=== PATIENT | female | born 1945 | race Caucasian/White ===

== ENCOUNTER 2022-11-29 01:52 | Inpatient (IN) | payer MEDICARE, OTHER ==
[~2022-11-29] VITALS: Ht 165.1 cm; Wt 104.2 kg
[~2022-11-29 01:52] MED LIST: ASCO-134 PO; EMPA10TA PO; FERR-39 PO; FLEC50TA10 PO; FURO20TA4 PO; LEVO100T9 PO; METO25TA6 PO; METO5TAB7 PO; POTA-208 PO; RIVA20TA PO; SIMV-45 PO; SPIR25TA5 PO
[2022-11-29] MEDS ORDERED: furosemide 40mg/4ml inj IV ONE (02:15)
[2022-11-29 02:43] LABS: BASOPHILS % (AUTO) 0.4 % (0-1); EOSINOPHILS # (AUTO) 0.1 X10'3 (0-0.9); EOSINOPHILS % (AUTO) 1.1 % (0-6); HEMATOCRIT 41.9 % (35.0-45.0); HEMOGLOBIN 13.6 g/dl (12.0-16.0); LYMPHOCYTES # (AUTO) 0.5 X10'3 (1.1-4.8); LYMPHOCYTES % (AUTO) 7.4 % (21-51); MEAN CORPUSCULAR HEMOGLOBIN 32.6 PG (27.0-31.0); MEAN CORPUSCULAR HGB CONC 32.6 g/dL (33.0-36.5); MEAN CORPUSCULAR VOLUME 100.1 FL (78-98); MEAN PLATELET VOLUME 7.9 FL (7.4-10.4); MONOCYTES # (AUTO) 0.8 X10'3 (0-0.9); MONOCYTES % (AUTO) 11.8 % (2-12); NEUTROPHILS # (AUTO) 5.4 X10'3 (1.8-7.7); NEUTROPHILS % (AUTO) 79.3 % (42-75); PLATELET COUNT 193 X10'3 (140-440); RED BLOOD COUNT 4.18 X10'6 (4.20-5.60); RED CELL DISTRIBUTION WIDTH 18.6 % (11.5-14.5); WHITE BLOOD COUNT 6.8 X10'3 (4.5-11.0)
[2022-11-29 03:00] LABS: ALANINE AMINOTRANSFERASE 27 U/L (12-78); ALBUMIN 2.9 G/DL (3.4-5.0); ALBUMIN/GLOBULIN RATIO 0.7 (1.1-1.5); ALKALINE PHOSPHATASE 172 IU/L (46-116); ANION GAP 5 (8-16); BILIRUBIN,TOTAL 1.8 MG/DL (0.1-1.0); BLOOD UREA NITROGEN 37 MG/DL (7-18); BUN/CREATININE RATIO 40.7 (6.6-38.0); CHLORIDE 95 MMOL/L (99-107); CREATININE 0.91 MG/DL (0.40-0.90); GLUCOSE 83 MG/DL (70-104); SODIUM 134 MMOL/L (135-145); TOTAL CARBON DIOXIDE 34.1 MMOL/L (24-32); TOTAL PROTEIN 7.1 G/DL (6.4-8.2); eGFR 60 ML/MIN
[2022-11-29 03:02] LABS: ASPARTATE AMINO TRANSFERASE 57 U/L (10-37); POTASSIUM 4.2 MMOL/L (3.5-5.1)
[2022-11-29] MEDS ORDERED: RIVA10TA PO ×2 (03:35→04:52)
[2022-11-29] MEDS ORDERED: CEPH250T PO ×2 (03:35→04:52)
[2022-11-29] MEDS ORDERED: LACTC PO (03:35)
[2022-11-29] MEDS ORDERED: magnesium hydroxide 30ml (MOM) UD suspension PO PRN (03:55)
[2022-11-29] MEDS ORDERED: ondansetron/PF 4mg/2ml inj IV PRN (03:55)
[2022-11-29] MEDS ORDERED: mag hydrox/Alum hydrox/simeth 30ml oral suspension PO PRN (03:55)
[2022-11-29] MEDS ORDERED: MESSAGE TO PHARMACY PO ONE (03:55)
[2022-11-29] MEDS ORDERED: dextrose 50%-water 50ml dispensing syringe IV PRN ×2 (03:55)
[2022-11-29] MEDS ORDERED: glucagon, human recombinant 1mg kit SUBCUT PRN (03:55)
[2022-11-29] MEDS ORDERED: insulin Lispro (HumaLOG) vial - multi-dose SQ SCH (03:55)
[2022-11-29] MEDS ORDERED: HYDROcodone/acetaminophen 5mg/325mg tablet PO PRN (03:55)
[2022-11-29] MEDS ORDERED: morphine 2 MG/ML inj. syringe IV PRN ×2 (03:55)
[2022-11-29] MEDS ORDERED: acetaminophen 325mg tablet PO PRN ×2 (03:55)
[2022-11-29] MEDS ORDERED: DEXTROSE 15 GM of carb/4 tabs (each vial/BOTTLE has 4 tablets) PO PRN ×2 (03:55)
[2022-11-29 04:25] LABS: HEMOGLOBIN A1C 6.2 % (4.5-6.2)
[2022-11-29] MEDS ORDERED: NA P133E4 RC (04:52)
[2022-11-29] MEDS ORDERED: FLEC100T35 PO (04:52)
[2022-11-29] MEDS ORDERED: BISA-155 PO (04:52)
[2022-11-29] MEDS ORDERED: DOCU-148 PO (04:52)
[2022-11-29] MEDS ORDERED: L. A1CAP11 PO (04:52)
[2022-11-29] MEDS ORDERED: BISA10SU11 RC (04:52)
[2022-11-29] MEDS ORDERED: LEVO100T9 PO (04:52)
[2022-11-29] MEDS ORDERED: MULT-1085 PO (04:52)
[2022-11-29] MEDS ORDERED: LOP12.5T PO (04:52)
[2022-11-29] MEDS ORDERED: FERR325T28 PO (04:52)
[2022-11-29] MEDS ORDERED: MAGN400O6 PO (04:52)
[2022-11-29] MEDS ORDERED: ATOR20TA PO (04:52)
[2022-11-29] MEDS ORDERED: FURO-150 PO (04:52)
[2022-11-29] MEDS ORDERED: ACET-1008 PO (04:52)
--- NOTE | 2022-11-29 06:42 | NUR ---
REPORT FROM DANITA MERAZ FOR CONTINUATION OF CARE. PT IS AWAKE AO3 LAYING IN A POSITION OF COMFORT. PURWIK IN PLACE NO OUTPUT NOTED. RESP EVEN UNLABORED SKIN W/D/I PINK.
[2022-11-29 07:07] LABS: ANISOCYTOSIS 2+; PLATELET ESTIMATE NORMAL; POLYCHROMASIA FEW
[2022-11-29 07:08] LABS: ACANTHOCYTES FEW; ELLIPTOCYTES 1+; TARGET CELLS 1+
--- NOTE | 2022-11-29 07:37 | NUR ---
REPORT TO SHARA SAMAYOA FOR CONTINUATION OF CARE
[2022-11-29 08:00] VITALS: BP 110/60
[2022-11-29] MEDS: docusate sod 100mg capsule PO SCH ×2 (08:32→21:02)
[2022-11-29] MEDS: furosemide 40mg/4ml inj IV SCH ×2 (08:32→21:02)
[2022-11-29 11:20] VITALS: BP 119/69
[2022-11-29 14:00] VITALS: BP 127/69
[2022-11-29 18:00] VITALS: BP 118/51
[2022-11-29] MEDS ORDERED: insulin glargine (Lantus) pen - multi-dose SQ SCH (21:00)
[2022-11-29] MEDS: doxycycline inj 100 MG in normal saline 100ml IV soln 100 ML IV SCH (21:07)
[2022-11-29 23:00] VITALS: BP 103/67
[2022-11-30 02:00] VITALS: BP 116/61
[2022-11-30 06:11] LABS: ALBUMIN 2.7 G/DL (3.4-5.0); ANION GAP 4 (8-16); BLOOD UREA NITROGEN 34 MG/DL (7-18); BUN/CREATININE RATIO 32.7 (6.6-38.0); CALCIUM 8.6 MG/DL (8.5-10.1); CHLORIDE 95 MMOL/L (99-107); CREATININE 1.04 MG/DL (0.40-0.90); GLUCOSE 101 MG/DL (70-104); POTASSIUM 3.7 MMOL/L (3.5-5.1); SODIUM 133 MMOL/L (135-145); TOTAL CARBON DIOXIDE 34.3 MMOL/L (24-32); eGFR 52 ML/MIN
[2022-11-30 06:15] LABS: EOSINOPHILS # (AUTO) 0.1 X10'3 (0-0.9); HEMOGLOBIN 12.6 g/dl (12.0-16.0); MEAN PLATELET VOLUME 7.6 FL (7.4-10.4); MONOCYTES # (AUTO) 0.7 X10'3 (0-0.9); NEUTROPHILS % (AUTO) 74.8 % (42-75)
[2022-11-30 06:18] LABS: BASOPHILS % (AUTO) 0.7 % (0-1); EOSINOPHILS % (AUTO) 2.1 % (0-6); HEMATOCRIT 39.3 % (35.0-45.0); LYMPHOCYTES # (AUTO) 0.5 X10'3 (1.1-4.8); LYMPHOCYTES % (AUTO) 9.2 % (21-51); MEAN CORPUSCULAR HEMOGLOBIN 32.1 PG (27.0-31.0); MEAN CORPUSCULAR VOLUME 100.4 FL (78-98); MONOCYTES % (AUTO) 13.2 % (2-12); NEUTROPHILS # (AUTO) 4.1 X10'3 (1.8-7.7); PLATELET COUNT 196 X10'3 (140-440); RED BLOOD COUNT 3.92 X10'6 (4.20-5.60); RED CELL DISTRIBUTION WIDTH 19.1 % (11.5-14.5); WHITE BLOOD COUNT 5.5 X10'3 (4.5-11.0)
[2022-11-30 07:25] VITALS: BP 120/60
[2022-11-30] MEDS: furosemide 40mg/4ml inj IV SCH ×3 (08:03→21:07)
[2022-11-30] MEDS: doxycycline inj 100 MG in normal saline 100ml IV soln 100 ML IV SCH ×2 (08:04→21:07)
[2022-11-30] MEDS: docusate sod 100mg capsule PO SCH ×2 (08:05→21:05)
[2022-11-30 16:22] VITALS: BP 104/46
[2022-11-30 18:00] VITALS: BP 121/62
[2022-11-30] MEDS: flecainide 50mg tablet PO SCH (21:05)
[2022-11-30] MEDS: metoprolol tartrate 12.5mg (1/2 tablet) PO SCH (21:06)
[2022-11-30] MEDS: atorvastatin 20mg tablet PO SCH (21:07)
[2022-11-30 22:00] VITALS: BP 119/69
[2022-12-01] VITALS (10 sets, daily range): BP systolic 90–122; BP diastolic 46–67
[2022-12-01 06:06] LABS: BASOPHILS % (AUTO) 0.7 % (0-1); EOSINOPHILS # (AUTO) 0.1 X10'3 (0-0.9); EOSINOPHILS % (AUTO) 1.1 % (0-6); HEMATOCRIT 37.8 % (35.0-45.0); HEMOGLOBIN 12.5 g/dl (12.0-16.0); LYMPHOCYTES # (AUTO) 0.7 X10'3 (1.1-4.8); LYMPHOCYTES % (AUTO) 8.9 % (21-51); MEAN CORPUSCULAR HEMOGLOBIN 32.5 PG (27.0-31.0); MEAN CORPUSCULAR HGB CONC 33.1 g/dL (33.0-36.5); MEAN PLATELET VOLUME 7.5 FL (7.4-10.4); MONOCYTES # (AUTO) 0.9 X10'3 (0-0.9); MONOCYTES % (AUTO) 11.6 % (2-12); NEUTROPHILS # (AUTO) 5.7 X10'3 (1.8-7.7); NEUTROPHILS % (AUTO) 77.7 % (42-75); PLATELET COUNT 192 X10'3 (140-440); RED BLOOD COUNT 3.86 X10'6 (4.20-5.60); RED CELL DISTRIBUTION WIDTH 18.6 % (11.5-14.5); WHITE BLOOD COUNT 7.3 X10'3 (4.5-11.0)
[2022-12-01 06:10] LABS: ALBUMIN 2.7 G/DL (3.4-5.0); ANION GAP 2 (8-16); BLOOD UREA NITROGEN 32 MG/DL (7-18); BUN/CREATININE RATIO 27.8 (6.6-38.0); CALCIUM 8.6 MG/DL (8.5-10.1); CHLORIDE 97 MMOL/L (99-107); CREATININE 1.15 MG/DL (0.40-0.90); GLUCOSE 109 MG/DL (70-104); SODIUM 135 MMOL/L (135-145); TOTAL CARBON DIOXIDE 35.6 MMOL/L (24-32); eGFR 46 ML/MIN
[2022-12-01] MEDS: docusate sod 100mg capsule PO SCH ×2 (08:00→20:08)
[2022-12-01] MEDS: levoTHYROXINE 100mcg tablet PO SCH (08:20)
[2022-12-01] MEDS: doxycycline inj 100 MG in normal saline 100ml IV soln 100 ML IV SCH ×2 (08:20→20:08)
[2022-12-01] MEDS: lactobacillus rhamnosus 10,000 MMU CELLS/CAPSULE PO SCH (08:21)
[2022-12-01] MEDS: spironolactone 25 MG tablet PO SCH (08:21)
[2022-12-01] MEDS: flecainide 50mg tablet PO SCH ×2 (08:21→20:08)
[2022-12-01] MEDS: EMPAGLIFLOZIN 10 MG TABLET PO SCH (08:21)
[2022-12-01] MEDS: furosemide 40mg/4ml inj IV SCH (08:22)
[2022-12-01] MEDS: metoprolol tartrate 12.5mg (1/2 tablet) PO SCH ×2 (08:22→20:00)
[2022-12-01] MEDS: sacubitril/valsartan 24mg-26mg tablet PO SCH ×2 (11:35→20:00)
--- NOTE | 2022-12-01 12:41 | NUR ---
Accu checks Dr Latrell durant'd to d/c. A1c 6.2 and pt has not med protocol yet.
--- NOTE | 2022-12-01 14:52 | NUR ---
paged Dr Sams PAGER ID: [phone] MESSAGE: [id number]. [place]. Standing scale shows 103.1 kg, increase of 16.7kg since admission. Roosevelt Oshea [phone]
--- NOTE | 2022-12-01 15:01 | NUR ---
Paged Kayla Mckoy [phone]. [place]. Fluid +, increase lasix like you mentioned? Standing scale shows 103.1 kg, increase from 86? on admission. Pls advise.
[2022-12-01] MEDS ORDERED: magnesium 2GM in 50ml NS 50 ML IV PRN (16:15)
[2022-12-01] MEDS: K, MAG and/or Phos replacement - Verify level? MC SCH (16:15)
[2022-12-01] MEDS ORDERED: furosemide inj 100 MG in normal saline 100ml IV soln 90 ML IV SCH ×2 (16:15→18:19)
[2022-12-01] MEDS ORDERED: sodium phosphate inj. 15 MMOL in dextrose 5%-water 250 ML IV PRN (16:15)
[2022-12-01] MEDS ORDERED: potassium Cl 20 mEq SR tablet PO PRN (16:15)
[2022-12-01] MEDS ORDERED: sodium phosphate inj. 30 MMOL in dextrose 5%-water 250 ML IV PRN (16:15)
[2022-12-01] MEDS ORDERED: magnesium 4gm in 100ml NS 100 ML IV PRN (16:15)
[2022-12-01] MEDS ORDERED: magnesium Cl slow-release 64mg tablet PO PRN (16:15)
[2022-12-01] MEDS ORDERED: Neutra Phos packet PO PRN (16:15)
--- NOTE | 2022-12-01 17:23 | NUR ---
paged CYNTHIA, MANUAL WINDER [phone]. [place]y. Soft BP 100/57, HR 60. Prev BP 94/67. Still want lasix gtt & parameters? Thx
[2022-12-01] MEDS: rivaroxaban 10mg tablet PO SCH (17:24)
[2022-12-01] MEDS ORDERED: LIDOcaine 2% 10ml TOPICAL JELLY (Urojet) TP ONE (18:25)
--- NOTE | 2022-12-01 18:41 | NUR ---
administered new lasix gtt from [facility], only diff is the added parameters.
[2022-12-01] MEDS: atorvastatin 20mg tablet PO SCH (20:08)
--- NOTE | 2022-12-01 22:53 | NUR ---
Spoke to Dr. You regarding decreased blood pressures (80/40s). Pt states she "is not lightheaded, dizzy or feeling funny." Orders to continue to hold lasix gtt and let him know if pt becomes symptomatic.
[2022-12-02 02:00] VITALS: BP 98/52
[2022-12-02 07:11] LABS: BASOPHILS % (AUTO) 0.4 % (0-1); EOSINOPHILS # (AUTO) 0.1 X10'3 (0-0.9); EOSINOPHILS % (AUTO) 1.6 % (0-6); HEMATOCRIT 39.2 % (35.0-45.0); HEMOGLOBIN 12.9 g/dl (12.0-16.0); LYMPHOCYTES # (AUTO) 0.6 X10'3 (1.1-4.8); LYMPHOCYTES % (AUTO) 9.2 % (21-51); MEAN CORPUSCULAR HEMOGLOBIN 32.8 PG (27.0-31.0); MEAN CORPUSCULAR HGB CONC 32.9 g/dL (33.0-36.5); MEAN CORPUSCULAR VOLUME 99.5 FL (78-98); MEAN PLATELET VOLUME 7.6 FL (7.4-10.4); MONOCYTES # (AUTO) 0.7 X10'3 (0-0.9); MONOCYTES % (AUTO) 12.2 % (2-12); NEUTROPHILS # (AUTO) 4.7 X10'3 (1.8-7.7); NEUTROPHILS % (AUTO) 76.6 % (42-75); PLATELET COUNT 181 X10'3 (140-440); RED BLOOD COUNT 3.94 X10'6 (4.20-5.60); RED CELL DISTRIBUTION WIDTH 18.7 % (11.5-14.5); WHITE BLOOD COUNT 6.1 X10'3 (4.5-11.0)
[2022-12-02 07:24] LABS: ALANINE AMINOTRANSFERASE 20 U/L (12-78); ALBUMIN 2.5 G/DL (3.4-5.0); ALBUMIN/GLOBULIN RATIO 0.6 (1.1-1.5); ALKALINE PHOSPHATASE 166 IU/L (46-116); ASPARTATE AMINO TRANSFERASE 40 U/L (10-37); BILIRUBIN,TOTAL 1.8 MG/DL (0.1-1.0); BLOOD UREA NITROGEN 35 MG/DL (7-18); BUN/CREATININE RATIO 29.7 (6.6-38.0); CALCIUM 8.4 MG/DL (8.5-10.1); CREATININE 1.18 MG/DL (0.40-0.90); GLUCOSE 100 MG/DL (70-104); MAGNESIUM 2.4 MG/DL (1.5-2.4); TOTAL CARBON DIOXIDE 33.7 MMOL/L (24-32); TOTAL PROTEIN 6.4 G/DL (6.4-8.2); eGFR 45 ML/MIN
[2022-12-02 07:34] LABS: ANION GAP 7 (8-16); CHLORIDE 95 MMOL/L (99-107); POTASSIUM 3.9 MMOL/L (3.5-5.1); SODIUM 136 MMOL/L (135-145)
[2022-12-02] MEDS: K, MAG and/or Phos replacement - Verify level? MC SCH (08:00)
[2022-12-02] MEDS: metoprolol tartrate 12.5mg (1/2 tablet) PO SCH (08:00)
[2022-12-02] MEDS: spironolactone 25 MG tablet PO SCH (08:00)
[2022-12-02 08:32] VITALS: BP 115/53
[2022-12-02] MEDS: sacubitril/valsartan 24mg-26mg tablet PO SCH (09:51)
[2022-12-02] MEDS: lactobacillus rhamnosus 10,000 MMU CELLS/CAPSULE PO SCH (09:51)
[2022-12-02] MEDS: docusate sod 100mg capsule PO SCH ×2 (09:51→20:32)
[2022-12-02] MEDS: EMPAGLIFLOZIN 10 MG TABLET PO SCH (09:54)
[2022-12-02] MEDS: levoTHYROXINE 100mcg tablet PO SCH (09:54)
[2022-12-02] MEDS: flecainide 50mg tablet PO SCH ×2 (09:54→20:32)
[2022-12-02] MEDS: doxycycline inj 100 MG in normal saline 100ml IV soln 100 ML IV SCH ×2 (09:56→20:32)
[2022-12-02 11:00] VITALS: BP 97/57
--- NOTE | 2022-12-02 11:48 | NUR ---
Student documentation: I have reviewed and agree with all interventions, assessments performed and documented by Josefa student nurse.
[2022-12-02] MEDS ORDERED: furosemide inj 100 MG in normal saline 100ml IV soln 90 ML IV SCH (11:50)
[2022-12-02 13:44] VITALS: BP 78/41
[2022-12-02 15:00] VITALS: BP 80/46
--- NOTE | 2022-12-02 15:48 | NUR ---
PRESSURE ULCER EDUCATION: DEFINITION: A pressure ulcer is an area of skin that breaks down when you stay in one position too long. The constant pressure against the skin reduces the blood flow to that area and the affected tissue dies. CAUSES: "Being bedridden or in a wheelchair "Fragile skin "Having a chronic condition, such as diabetes or vascular disease "Inability to move certain parts of your body without assistance "Older age "Incontinence of urine or stool SYMPTOMS: "A reddened area that DOES NOT turn white when pressed on - this can be the beginning of a pressure ulcer "A blister, deep sore or a crater - these can be advanced pressure ulcers FIRST AID: "Relieve the pressure on this area "Keep the area clean and dry "Call your primary doctor if you see any of the above symptoms "DO NOT massage the area "DO NOT use a donut shaped or ring shaped pillow- these actually interfere with the blood flow and cause complications PREVENTION: "Check for pressure ulcers everyday "Change position at least every two hours to relieve pressure "Use items that help relieve pressure- pillows, sheepskin, foam padding, and powders. "Keep skin clean and dry "Eat healthy well balanced meals "Exercise daily IF YOU SEE ANY OF THESE SYMPTOMS WHILE IN THE HOSPITAL - TELL YOUR NURSE IMMEDIATELY. IF YOU SEE ANY OF THESE SYMPTOMS WHILE AT HOME OR HAVE ANY QUESTIONS OR CONCERNS ABOUT PRESSURE ULCERS - CALL YOUR PRIMARY DOCTOR IMMEDIATELY. Addendum: 12/02/22 at 1549 by Ching Escobedo RN Amended: Links added.
--- NOTE | 2022-12-02 16:15 | NUR ---
Dr Ag and Erlinda both notified of low BP's. Lasix GTT stopped for now. Current BP 80/46. Pt is not symptomatic and showing no signs of hypoperfusion at this time.
--- NOTE | 2022-12-02 16:25 | NUR ---
16 yakut mcnair placed. patient tolerated procedure well. urine draining to gravity. leg strip placed to secure mcnair. 350 ml drained upon placement. heidi in color.
[2022-12-02] MEDS: rivaroxaban 10mg tablet PO SCH (17:54)
[2022-12-02] MEDS: lactose-reduced food (Ensure Enlive) - 237ml bottle PO SCH (20:00)
[2022-12-02] MEDS: atorvastatin 20mg tablet PO SCH (20:32)
[2022-12-02 22:00] VITALS: BP 100/48
--- NOTE | 2022-12-02 22:50 | NUR ---
Spoke w/ Dr. Sams regarding pt's order for Lasix gtt since DBP was finally 100; ordered to continue to hold Lasix gtt.
[2022-12-03] VITALS (7 sets, daily range): BP systolic 96–109; BP diastolic 43–62
--- NOTE | 2022-12-03 06:00 | NUR ---
Problems reprioritized. Patient report given, questions answered & plan of care reviewed with DANITA Brown.
[2022-12-03 06:33] LABS: BASOPHILS % (AUTO) 0.6 % (0-1); EOSINOPHILS # (AUTO) 0.1 X10'3 (0-0.9); EOSINOPHILS % (AUTO) 1.6 % (0-6); HEMATOCRIT 39.3 % (35.0-45.0); HEMOGLOBIN 12.9 g/dl (12.0-16.0); LYMPHOCYTES # (AUTO) 0.7 X10'3 (1.1-4.8); MEAN CORPUSCULAR HEMOGLOBIN 32.3 PG (27.0-31.0); MEAN CORPUSCULAR HGB CONC 32.8 g/dL (33.0-36.5); MEAN CORPUSCULAR VOLUME 98.6 FL (78-98); MEAN PLATELET VOLUME 7.6 FL (7.4-10.4); MONOCYTES # (AUTO) 0.8 X10'3 (0-0.9); MONOCYTES % (AUTO) 12.3 % (2-12); NEUTROPHILS # (AUTO) 4.6 X10'3 (1.8-7.7); NEUTROPHILS % (AUTO) 74.5 % (42-75); PLATELET COUNT 207 X10'3 (140-440); RED BLOOD COUNT 3.98 X10'6 (4.20-5.60); RED CELL DISTRIBUTION WIDTH 18.1 % (11.5-14.5); WHITE BLOOD COUNT 6.1 X10'3 (4.5-11.0)
--- NOTE | 2022-12-03 06:46 | NUR ---
Patient in room PCU 3016. I have received report from DANITA STAFFORD, and had the opportunity to ask questions and assume patient care.
[2022-12-03 07:13] LABS: ALANINE AMINOTRANSFERASE 20 U/L (12-78); ALBUMIN 2.6 G/DL (3.4-5.0); ALBUMIN/GLOBULIN RATIO 0.7 (1.1-1.5); ALKALINE PHOSPHATASE 167 IU/L (46-116); ANION GAP 4 (8-16); ASPARTATE AMINO TRANSFERASE 40 U/L (10-37); BILIRUBIN,TOTAL 1.8 MG/DL (0.1-1.0); BLOOD UREA NITROGEN 44 MG/DL (7-18); BUN/CREATININE RATIO 37.6 (6.6-38.0); CALCIUM 8.5 MG/DL (8.5-10.1); CHLORIDE 96 MMOL/L (99-107); CREATININE 1.17 MG/DL (0.40-0.90); GLUCOSE 106 MG/DL (70-104); MAGNESIUM 2.4 MG/DL (1.5-2.4); PHOSPHORUS 4.1 MG/DL (2.3-4.5); POTASSIUM 4.1 MMOL/L (3.5-5.1); SODIUM 133 MMOL/L (135-145); TOTAL CARBON DIOXIDE 32.9 MMOL/L (24-32); TOTAL PROTEIN 6.4 G/DL (6.4-8.2); eGFR 45 ML/MIN
[2022-12-03] MEDS: K, MAG and/or Phos replacement - Verify level? MC SCH (07:17)
[2022-12-03] MEDS: doxycycline inj 100 MG in normal saline 100ml IV soln 100 ML IV SCH ×2 (09:26→21:17)
[2022-12-03] MEDS: lactobacillus rhamnosus 10,000 MMU CELLS/CAPSULE PO SCH (09:33)
[2022-12-03] MEDS: docusate sod 100mg capsule PO SCH ×2 (09:34→20:00)
[2022-12-03] MEDS: metolazone 2.5mg tablet PO SCH (09:34)
[2022-12-03] MEDS: levoTHYROXINE 100mcg tablet PO SCH (09:34)
[2022-12-03] MEDS: EMPAGLIFLOZIN 10 MG TABLET PO SCH (09:34)
[2022-12-03] MEDS: flecainide 50mg tablet PO SCH ×2 (09:34→21:15)
--- NOTE | 2022-12-03 09:37 | NUR ---
Initial: Pt with h/o CHF admit for edema and BLE cellulitis with possible cirrhosis. Pt seen by wound care, per report pt with partial thickness cellulitis to RLE and left ankle. Pt on a 2 g Na restriction diet with 1.5 L fluid restriction and overall eating well, documented with average 67% PO intake which meets 91% minimum estimated energy needs and 100% minimum estimated protein needs. Noted an Ensure Enlive BID was ordered 12/02 (will be substituted with Ensure Plus HP d/t product shortage), pending documentation of ONS acceptance. If PO intake of meals remains with current trends or improves recommend discontinuing ONS versus decreasing frequency to once daily. LBM 11/29 per I&O, receiving routine bowel care and with additional PRN bowel care available. D/w dietary to send prunes with next meal to further assist with bowel regularity. Will continue to follow and monitor need for additional nutrition intervention. Recommendations: 1) Continue 2 g Na 1.5 L fluid restriction per physician 2) Ensure Enlive BID (sub Ensure Plus HP); monitor need to adjust frequency 3) Routine bowel care; utilize PRN bowel care 4) Daily scaled weights per rx Addendum: 12/03/22 at [address] Amended: Links added.
[2022-12-03] MEDS: furosemide 40mg/4ml inj IV SCH ×3 (10:33→21:12)
--- NOTE | 2022-12-03 12:19 | NUR ---
REPORT TO DAKOTA DE LUNA FOR CONTINUATION OF CARE
--- NOTE | 2022-12-03 12:19 | NUR ---
Recieved report, assuming care as stuent nurse.
[2022-12-03] MEDS ORDERED: ondansetron 4mg rapidly disintigrating tab PO PRN (17:00)
[2022-12-03] MEDS: rivaroxaban 10mg tablet PO SCH (17:57)
--- NOTE | 2022-12-03 18:00 | NUR ---
Patient in room PCU 3016. I have received report from DANITA Brown and had the opportunity to ask questions and assume patient care.
--- NOTE | 2022-12-03 18:44 | NUR ---
Problems reprioritized. Patient report given, questions answered & plan of care reviewed with DANITA STAFFORD.
[2022-12-03] MEDS: lactose-reduced food (Ensure Enlive) - 237ml bottle PO SCH (20:00)
[2022-12-03] MEDS: atorvastatin 20mg tablet PO SCH (21:15)
[2022-12-04 02:00] VITALS: BP 99/47
--- NOTE | 2022-12-04 06:00 | NUR ---
Patient in room PCU 3016. I have received report from Abhilash SAMAYOA and had the opportunity to ask questions and assume patient care.
--- NOTE | 2022-12-04 06:21 | NUR ---
Problems reprioritized. Patient report given, questions answered & plan of care reviewed with DANITA Rosario.
[2022-12-04 06:49] LABS: BASOPHILS % (AUTO) 0.7 % (0-1); EOSINOPHILS # (AUTO) 0.1 X10'3 (0-0.9); EOSINOPHILS % (AUTO) 1.9 % (0-6); HEMATOCRIT 38.9 % (35.0-45.0); HEMOGLOBIN 12.8 g/dl (12.0-16.0); LYMPHOCYTES # (AUTO) 0.7 X10'3 (1.1-4.8); LYMPHOCYTES % (AUTO) 11.4 % (21-51); MEAN CORPUSCULAR HEMOGLOBIN 32.7 PG (27.0-31.0); MEAN CORPUSCULAR HGB CONC 32.9 g/dL (33.0-36.5); MEAN CORPUSCULAR VOLUME 99.3 FL (78-98); MEAN PLATELET VOLUME 7.8 FL (7.4-10.4); MONOCYTES # (AUTO) 0.8 X10'3 (0-0.9); MONOCYTES % (AUTO) 13.1 % (2-12); NEUTROPHILS # (AUTO) 4.2 X10'3 (1.8-7.7); NEUTROPHILS % (AUTO) 72.9 % (42-75); PLATELET COUNT 192 X10'3 (140-440); RED BLOOD COUNT 3.92 X10'6 (4.20-5.60); RED CELL DISTRIBUTION WIDTH 18.1 % (11.5-14.5); WHITE BLOOD COUNT 5.8 X10'3 (4.5-11.0)
[2022-12-04 07:18] LABS: ALANINE AMINOTRANSFERASE 20 U/L (12-78); ALBUMIN 2.5 G/DL (3.4-5.0); ALBUMIN/GLOBULIN RATIO 0.6 (1.1-1.5); ALKALINE PHOSPHATASE 162 IU/L (46-116); ANION GAP 6 (8-16); ASPARTATE AMINO TRANSFERASE 38 U/L (10-37); BILIRUBIN,TOTAL 1.7 MG/DL (0.1-1.0); BLOOD UREA NITROGEN 46 MG/DL (7-18); BUN/CREATININE RATIO 36.2 (6.6-38.0); CALCIUM 8.7 MG/DL (8.5-10.1); CHLORIDE 97 MMOL/L (99-107); CREATININE 1.27 MG/DL (0.40-0.90); GLUCOSE 106 MG/DL (70-104); MAGNESIUM 2.4 MG/DL (1.5-2.4); PHOSPHORUS 4.9 MG/DL (2.3-4.5); POTASSIUM 3.4 MMOL/L (3.5-5.1); SODIUM 136 MMOL/L (135-145); TOTAL PROTEIN 6.5 G/DL (6.4-8.2); eGFR 41 ML/MIN
[2022-12-04] MEDS: lactose-reduced food (Ensure Enlive) - 237ml bottle PO SCH (08:00)
[2022-12-04] MEDS: furosemide 40mg/4ml inj IV SCH (09:53)
[2022-12-04] MEDS: metolazone 2.5mg tablet PO SCH (09:54)
[2022-12-04] MEDS: docusate sod 100mg capsule PO SCH (09:54)
[2022-12-04] MEDS: EMPAGLIFLOZIN 10 MG TABLET PO SCH (09:54)
[2022-12-04] MEDS: doxycycline inj 100 MG in normal saline 100ml IV soln 100 ML IV SCH (09:54)
[2022-12-04] MEDS: lactobacillus rhamnosus 10,000 MMU CELLS/CAPSULE PO SCH (09:54)
[2022-12-04] MEDS: potassium Cl 20 mEq SR tablet PO PRN ×2 (09:55→13:32)
[2022-12-04] MEDS: flecainide 50mg tablet PO SCH (09:55)
[2022-12-04] MEDS: levoTHYROXINE 100mcg tablet PO SCH (09:55)
--- NOTE | 2022-12-04 15:37 | NUR ---
Pt stable for transfer to [facility] per Dr. Ag. PIV discontinued, cannula intact. Hughes to stay in place for strict I and Os. All belongings collected and sent with patient and all picked up via [employer].
== END 2022-12-04 13:44 | DRG 602 ==
LOC: ER 01:52 → ED HOLD 03:58 → PCU 3S 07:54
PROVIDERS: ADMIT Internal Medicine; ATTEND Internal Medicine
DX: L03.115 Cellulitis of right lower limb (principal); I50.33 Acute on chronic diastolic (congestive) heart failure; E87.1 Hypo-osmolality and hyponatremia; R18.8 Other ascites; L03.116 Cellulitis of left lower limb; I11.0 Hypertensive heart disease with heart failure; I48.0 Paroxysmal atrial fibrillation; E03.9 Hypothyroidism, unspecified; E66.01 Morbid (severe) obesity due to excess calories; E11.9 Type 2 diabetes mellitus without complications; E78.5 Hyperlipidemia, unspecified; S81.809A Unspecified open wound, unspecified lower leg, initial encounter; X58.XXXA Exposure to other specified factors, initial encounter; R14.0 Abdominal distension (gaseous); I27.29 Other secondary pulmonary hypertension; I27.81 Cor pulmonale (chronic); Z82.49 Family history of ischemic heart disease and other diseases of the circulatory system; Z83.3 Family history of diabetes mellitus; Z95.0 Presence of cardiac pacemaker; Z79.01 Long term (current) use of anticoagulants; Z79.899 Other long term (current) drug therapy; Z68.38 Body mass index [BMI] 38.0-38.9, adult; Z71.3 Dietary counseling and surveillance; Y93.89 Activity, other specified; Y92.89 Other specified places as the place of occurrence of the external cause; Y99.8 Other external cause status
CPT/HCPCS: 36415; 71045; 76705; 80048; 80053; 82948; 83036; 83735; 83880; 84100; 84439; 84443; 85008; 85025; 85610; 87081; 93005; 96374; 97116; 97161; 97530; 97535; 99285; A4615; A6196; A6223; A6253; A6446; A6449; G0378; J1815; J1940; J3490; J7040

== ENCOUNTER 2023-02-11 12:51 | Outpatient (CLI) | payer MEDICARE, OTHER ==
[~2023-02-11 12:51] MED LIST changes: +ACET-1008 PO; +ATOR20TA PO; +BISA-155 PO; +BISA10SU11 RC; +CEPH250T PO; +DOCU-148 PO; +FURO-150 PO; -FURO20TA4 PO; +LACTC PO; +LOP12.5T PO; +MAGN400O6 PO; -METO25TA6 PO; +MULT-1085 PO; +NA P133E4 RC; +RIVA10TA PO; -RIVA20TA PO
== END 2023-02-11 23:59 | disposition home or self-care (01) ==
LOC: RAD 12:51
PROVIDERS: ATTEND Nurse Practitioner Family
DX: K82.0 Obstruction of gallbladder (principal); Z98.890 Other specified postprocedural states
CPT/HCPCS: 74150

== ENCOUNTER 2023-03-11 12:54 | Emergency (ER) | payer MEDICARE, OTHER ==
[~2023-03-11] VITALS: Ht 152.4 cm; Wt 94.0 kg
--- NOTE | 2023-03-11 13:49 | NUR ---
PER DR MARIBEL PETER EKG FOR WEAKNESS. EKG BEING DONE AT BEDSIDE.
--- NOTE | 2023-03-11 13:52 | NUR ---
PER DR MARIBEL SAMAYOA MARCH ORD UA. URINE COLLECTED AND SENT TO LAB.
[2023-03-11 14:28] LABS: BASOPHILS % (AUTO) 0.3 % (0-1); EOSINOPHILS # (AUTO) 0.1 X10'3 (0-0.9); EOSINOPHILS % (AUTO) 1.8 % (0-6); HEMATOCRIT 45.4 % (35.0-45.0); LYMPHOCYTES # (AUTO) 0.7 X10'3 (1.1-4.8); LYMPHOCYTES % (AUTO) 13.8 % (21-51); MEAN CORPUSCULAR HEMOGLOBIN 32.6 PG (27.0-31.0); MEAN CORPUSCULAR VOLUME 98.9 FL (78-98); MEAN PLATELET VOLUME 8.1 FL (7.4-10.4); MONOCYTES # (AUTO) 0.7 X10'3 (0-0.9); NEUTROPHILS # (AUTO) 3.8 X10'3 (1.8-7.7); NEUTROPHILS % (AUTO) 71.1 % (42-75); PLATELET COUNT 147 X10'3 (140-440); RED BLOOD COUNT 4.59 X10'6 (4.20-5.60); RED CELL DISTRIBUTION WIDTH 17.4 % (11.5-14.5); WHITE BLOOD COUNT 5.4 X10'3 (4.5-11.0)
[2023-03-11 14:46] LABS: ALBUMIN 2.8 G/DL (3.4-5.0); ANION GAP 9 (8-16); BILIRUBIN,TOTAL 2.8 MG/DL (0.1-1.0); BLOOD UREA NITROGEN 31 MG/DL (7-18); BUN/CREATININE RATIO 27.7 (10.0-20.0); CALCIUM 9.1 MG/DL (8.5-10.1); CHLORIDE 93 MMOL/L (99-107); CREATININE 1.12 MG/DL (0.40-0.90); GLUCOSE 132 MG/DL (70-104); MAGNESIUM 2.1 MG/DL (1.5-2.4); SODIUM 132 MMOL/L (135-145); TOTAL CARBON DIOXIDE 30.4 MMOL/L (24-32); eGFR 47 ML/MIN
[2023-03-11 14:47] LABS: ALANINE AMINOTRANSFERASE 28 U/L (12-78); ALBUMIN/GLOBULIN RATIO 0.7 (1.1-1.5); ALKALINE PHOSPHATASE 145 IU/L (46-116); ASPARTATE AMINO TRANSFERASE 35 U/L (10-37)
[2023-03-11 14:48] LABS: CLARITY,URINE CLEAR (Clear); COLOR,URINE YELLOW (Yellow); GLUCOSE, URINE 250 mg/dl (Neg); KETONES,URINE NEGATIVE (Neg); LEUKOCYTE ESTERASE ,URINE TRACE (Neg); NITRITES, URINE NEGATIVE (Neg); OCCULT BLOOD,URINE NEGATIVE (Neg); PROTEIN,URINE NEGATIVE (Neg)
[2023-03-11 14:49] LABS: UA COLLECTION TYPE CLN CATCH MIDSTREAM
[2023-03-11 14:59] LABS: POTASSIUM 2.9 MMOL/L (3.5-5.1)
[2023-03-11 15:04] LABS: BACTERIA,URINE FEW /HPF (Neg); MUCUS STRANDS NONE SEEN /LPF (Neg); RBC,URINE 0-2 /HPF (0-2); SQUAMOUS EPITHELIAL CELL,UR FEW /LPF (FEW); WBC,URINE 0-4 /HPF (0-4)
[2023-03-11] MEDS ORDERED: potassium Cl 20 mEq SR tablet PO STA (15:17)
[2023-03-11] MEDS ORDERED: POTASSIUM BICARB 20meq eff tab 20 MEQ TABLET.EFF PO STA (15:32)
[2023-03-11 15:59] VITALS: BP 105/60
== END 2023-03-11 16:05 | disposition home or self-care (01) ==
LOC: ER 12:55
DX: E87.6 Hypokalemia (principal); I11.0 Hypertensive heart disease with heart failure; I50.9 Heart failure, unspecified; Z79.899 Other long term (current) drug therapy; Z79.1 Long term (current) use of non-steroidal anti-inflammatories (NSAID); Z79.2 Long term (current) use of antibiotics
CPT/HCPCS: 36415; 80053; 81001; 83735; 85025; 87088; 93005; 99284

== ENCOUNTER 2023-03-16 02:50 | Inpatient (IN) | payer MEDICARE, OTHER ==
[~2023-03-16] VITALS: Ht 165.1 cm; Wt 84.1 kg
[2023-03-16] VITALS (20 sets, daily range): BP systolic 10–135; BP diastolic 32–86
[2023-03-16] MEDS ORDERED: normal saline 1000ml 1,000 ML IV ONE (03:10)
[2023-03-16] MEDS ORDERED: DOPamine 400mg/D5W 250ml 250 ML IV SCH (03:10)
[2023-03-16] MEDS ORDERED: ondansetron/PF 4mg/2ml inj ONE (03:13)
[2023-03-16 03:32] LABS: ABG BASE EXCESS -9.8 mmol/L (-2.0-2.0); ABG HCO3 16.1 mmol/L (22.0-26.0); ABG OXYGEN SATURATION 94.3 % (94-97); ABG PCO2 (T) 34.5 mmHg (32.0-45.0); ABG PO2 (T) 81.8 mmHg (75.0-100.0); ALLEN'S TEST POSITIVE; FLOW 6 L/min; FMetHb 0.3 % (0.0-1.5); FO2Hb 93.1 % (94-97); TOTAL HEMOGLOBIN 16.6 G/dl (12.0-16.0)
[2023-03-16] MEDS ORDERED: LIDOcaine 2% 10ml TOPICAL JELLY (Urojet) TP ONE (03:45)
[2023-03-16 03:51] LABS: GLUCOSE, URINE NEGATIVE (Neg); KETONES,URINE NEGATIVE (Neg); LEUKOCYTE ESTERASE ,URINE NEGATIVE (Neg); NITRITES, URINE NEGATIVE (Neg); OCCULT BLOOD,URINE TRACE-INTACT (Neg); PROTEIN,URINE TRACE mg/dl (Neg)
[2023-03-16 03:55] LABS: BASOPHILS % (AUTO) 0.3 % (0-1); EOSINOPHILS % (AUTO) 0.7 % (0-6); HEMATOCRIT 39.9 % (35.0-45.0); HEMOGLOBIN 12.8 g/dl (12.0-16.0); LYMPHOCYTES # (AUTO) 1.6 X10'3 (1.1-4.8); LYMPHOCYTES % (AUTO) 24.4 % (21-51); MEAN CORPUSCULAR HEMOGLOBIN 32.5 PG (27.0-31.0); MEAN CORPUSCULAR VOLUME 101.7 FL (78-98); MEAN PLATELET VOLUME 8.6 FL (7.4-10.4); MONOCYTES # (AUTO) 0.8 X10'3 (0-0.9); MONOCYTES % (AUTO) 11.4 % (2-12); NEUTROPHILS # (AUTO) 4.2 X10'3 (1.8-7.7); NEUTROPHILS % (AUTO) 63.2 % (42-75); PLATELET COUNT 127 X10'3 (140-440); RED BLOOD COUNT 3.93 X10'6 (4.20-5.60); RED CELL DISTRIBUTION WIDTH 18.2 % (11.5-14.5); WHITE BLOOD COUNT 6.6 X10'3 (4.5-11.0)
[2023-03-16 03:59] LABS: CLARITY,URINE SLIGHTLY CLOUDY (Clear); COLOR,URINE DARK YELLOW (Yellow); UA COLLECTION TYPE FOLEY CATH
[2023-03-16] MEDS: epiNEPHrine inj 10 MG in normal saline 250ml IV soln 240 ML IV SCH ×4 (04:00→16:57)
[2023-03-16 04:03] LABS: BACTERIA,URINE FEW /HPF (Neg); SQUAMOUS EPITHELIAL CELL,UR FEW /LPF (FEW)
[2023-03-16 04:04] LABS: MUCUS STRANDS FEW /LPF (Neg); TRANSITIONAL EPI CELLS,URINE FEW /HPF
--- NOTE | 2023-03-16 04:05 | NUR ---
Dr. Willis at bedside.
[2023-03-16 04:09] LABS: ALANINE AMINOTRANSFERASE 32 U/L (12-78); ALBUMIN 3.2 G/DL (3.4-5.0); ALBUMIN/GLOBULIN RATIO 0.7 (1.1-1.5); ALKALINE PHOSPHATASE 160 IU/L (46-116); ANION GAP 6 (8-16); ASPARTATE AMINO TRANSFERASE 40 U/L (10-37); BILIRUBIN,TOTAL 2.7 MG/DL (0.1-1.0); BLOOD UREA NITROGEN 39 MG/DL (7-18); BUN/CREATININE RATIO 21.9 (10.0-20.0); CALCIUM 9.4 MG/DL (8.5-10.1); CHLORIDE 98 MMOL/L (99-107); CREATININE 1.78 MG/DL (0.40-0.90); GLUCOSE 136 MG/DL (70-104); LIPASE 234 U/L (73-393); MAGNESIUM 2.6 MG/DL (1.5-2.4); SODIUM 128 MMOL/L (135-145); TOTAL CARBON DIOXIDE 23.7 MMOL/L (24-32); TOTAL PROTEIN 7.6 G/DL (6.4-8.2); eGFR 28 ML/MIN
[2023-03-16 04:10] LABS: POTASSIUM 6.2 MMOL/L (3.5-5.1)
[2023-03-16] MEDS ORDERED: sodium bicarbonate (8.4%) 1 mEq/ml syringe IV ONE (04:15)
[2023-03-16] MEDS ORDERED: insulin regular, human 10 units/0.1 ml syringe IV ONE (04:15)
[2023-03-16] MEDS ORDERED: dextrose 50%-water 50ml dispensing syringe IV ONE (04:15)
[2023-03-16] MEDS ORDERED: CALCIUM GLUC 1gm/50ml NACL,iso 50 ML IV PRN (04:15)
[2023-03-16] MEDS ORDERED: albuterol 2.5 MG/3 ML nebule NEB ONE (04:15)
[2023-03-16] MEDS ORDERED: ceFAZolin/D5W- 1GM premix 50 ML IV STA (04:21)
[2023-03-16] MEDS ORDERED: ondansetron/PF 4mg/2ml inj IV PRN (04:25)
[2023-03-16] MEDS ORDERED: acetaminophen 325mg tablet PO PRN ×2 (04:25)
[2023-03-16 04:32] LABS: ANISOCYTOSIS 2+; PLATELET ESTIMATE DECREASED
[2023-03-16 04:33] LABS: BURR CELLS 1+; ELLIPTOCYTES FEW; POLYCHROMASIA FEW
[2023-03-16 04:34] LABS: TARGET CELLS FEW
[2023-03-16] MEDS ORDERED: SENN-263 PO (06:06)
[2023-03-16] MEDS ORDERED: LEVO150T8 PO (06:06)
[2023-03-16] MEDS ORDERED: ketamine 50mg/5ml syringe ONE (06:52)
[2023-03-16] MEDS ORDERED: rocuronium 10mg/ml inj IV ONE (06:55)
[2023-03-16] MEDS ORDERED: ketamine 50mg/5ml syringe IV ONE (06:55)
[2023-03-16] MEDS ORDERED: FENTANYL-0.9 % NACL/PF 100 ML IV PRN (06:55)
--- NOTE | 2023-03-16 07:00 | NUR ---
Received report chris SAMAYOA Neur. fixed and dilated non verbal card. sina paced not always capturing been interrogated resp. angelina breathing on 15L non re breather GI. Diana no ouput Skin. no report Line Right femoral Gtt maxed dopamine, maxed epi Patient going to CT before ICU Addendum: 03/16/23 at 0939 by Deb Ceron RN Patient brought to ER From [facility] for complaing of weakness and shortness of breath when ambulating to bathroom EMS called due to hear rate being 20-60, once on monitor patients pacemaker was not capturing
[2023-03-16] MEDS ORDERED: NORepinephrine 8mg/ 250ml NS 250 ML IV ONE (07:09)
[2023-03-16] MEDS ORDERED: NORepinephrine 8mg/ 250ml NS 250 ML IV SCH (07:10)
--- NOTE | 2023-03-16 07:15 | NUR ---
RN called back stated patient being intubated before going to CT and now requiring max dose Levophed
[2023-03-16] MEDS ORDERED: MIDAZolam inj 50 MG in normal saline 50ml IV soln 40 ML IV SCH (07:25)
[2023-03-16] MEDS ORDERED: pantoprazole 40mg Tablet.DR PO SCH (07:30)
[2023-03-16] MEDS ORDERED: midazolam 100mg in NS 100ml 100 ML IV SCH (07:43)
[2023-03-16] MEDS: FENTANYL-0.9 % NACL/PF 100 ML IV PRN ×2 (07:52→10:20)
--- NOTE | 2023-03-16 07:53 | NUR ---
RSI - KETAMINE 150, IKE 100 @ 0728 ATTEMPT 1 7.5 ET TUBE @ 0730 - TOO BIG, BVM BETWEEN ATTEMPTS WITH 02 SATS 98 ATTEMPT 2 7.0 ET TUBE @ 0733 - SUCCESSFUL 21 @ TEETH, POSITIVE COLOR CHANGE, BILAT BREATH SOUNDS - XRAY ORDERED FOR CONFIRMATION LEVO DECREASED TO 0.7 AND DOPAMINE OFF AT 0743
[2023-03-16] MEDS ORDERED: propofol 1000mg/100ml bottle 100 ML IV ONE (07:54)
[2023-03-16] MEDS ORDERED: propofol 1000mg/100ml bottle 100 ML IV SCH ×2 (08:00→08:18)
--- NOTE | 2023-03-16 08:04 | NUR ---
REP FROM [facility] HERE FOR PACER INTERROGATION
[2023-03-16 08:05] LABS: ABG BASE EXCESS -14.4 mmol/L (-2.0-2.0); ABG HCO3 12.7 mmol/L (22.0-26.0); ABG OXYGEN SATURATION 99.5 % (94-97); ABG PCO2 (T) 32.8 mmHg (32.0-45.0); ALLEN'S TEST POSITIVE; FCOHb 0.6 % (0.0-3.9); FMetHb 0.3 % (0.0-1.5); FO2Hb 98.6 % (94-97); PEEP 5 cm H2O; RESPIRATORY RATE 20 b/min; TIDAL VOLUME 400 mL; TOTAL HEMOGLOBIN 16.2 G/dl (12.0-16.0)
--- NOTE | 2023-03-16 08:05 | NUR ---
TUBE ADJUSTED TO 23 AT THE TEETH AND FIO2 DOWN TO 50%
[2023-03-16 08:39] LABS: ALANINE AMINOTRANSFERASE 36 U/L (12-78); ALBUMIN 2.7 G/DL (3.4-5.0); ALBUMIN/GLOBULIN RATIO 0.7 (1.1-1.5); ALKALINE PHOSPHATASE 147 IU/L (46-116); ANION GAP 20 (8-16); ASPARTATE AMINO TRANSFERASE 63 U/L (10-37); BILIRUBIN,TOTAL 2.7 MG/DL (0.1-1.0); BLOOD UREA NITROGEN 36 MG/DL (7-18); BUN/CREATININE RATIO 17.7 (10.0-20.0); CHLORIDE 96 MMOL/L (99-107); CREATININE 2.03 MG/DL (0.40-0.90); GLUCOSE 174 MG/DL (70-104); SODIUM 134 MMOL/L (135-145); TOTAL CARBON DIOXIDE 18.4 MMOL/L (24-32); TOTAL PROTEIN 6.8 G/DL (6.4-8.2); eGFR 24 ML/MIN
--- NOTE | 2023-03-16 08:40 | NUR ---
report was called to ICU by SALLY RN - staff updated with pt changes since report was called
[2023-03-16] MEDS: NORepinephrine inj. 32 MG in normal saline 250ml IV soln 218 ML IV SCH ×2 (08:50→11:32)
--- NOTE | 2023-03-16 10:47 | NUR ---
Initial: Pt presented with c/o weakness and SOB and admit for bradycardia, hyperkalemia, hyponatremia, and AMS. Per ED note pt became tachypneic with dilated nonreactive pupils and not following commands and pt ultimately intubated. Per patient's family pt drank a lot of water PHARM SPEC and pt was taking Lasix rx. Propofol visualized at bedside to be running at 2.52 mL/hr providing 67 kcal/day. No plans to initiate nutrition support at this time pending possible change in code status. TF recs below for if expected prolonged intubation and to receive nutrition support. Will continue to follow closely. Recommendations: 1) IF TF and Propofol at 2.52 mL/hr (67 kcal/day), continuous Vital AF with 60 mL/hr goal rate. Begin at 20 mL/hr and advance by 20 mL Q8H as tolerated to goal rate; monitor Propofol rate 2) IF TF, additional water flushes per MD given hyponatremia and CHF; monitor serum Na 3) IF TF, prealbumin a Wednesday/; daily scaled weights 4) Routine bowel care Addendum: 03/16/23 at [address] Amended: Links added.
--- NOTE | 2023-03-16 10:52 | NUR ---
Rounds note Patients daughter Peggy and Carlos present for rounds Reviewed labs, drips, physical assessment, and vent settings discussed at length of patients poor prognosis, it was agreed with the and daughter that she will be DNR. and daughter and trying to reach the rest of her children
--- NOTE | 2023-03-16 17:48 | NUR ---
spoke to Dr. Burroughs and wishes to make Jenni comfort care, Dr. Burroughs stated he is putting in orders. informed me that she is registered with the [employer] local number is [phone] based out of [place]
[2023-03-16] MEDS ORDERED: LORazepam 2 mg/ml vial IV PRN (17:50)
[2023-03-16] MEDS ORDERED: morphine 10mg/ml inj. IV PRN (17:50)
--- NOTE | 2023-03-16 18:20 | NUR ---
RN IS TO DOCUMENT YES TO ALL APPLICABLE AREAS Pronouncement of : 1. Time Physician Notified:[id number] 2. Date of :03/16/2023 3. Time of : 1819 4. DNR/Withdraw life support documented:yes 5. Monitor strip has been placed on chart:yes 6. Assessment process is of one-minute duration and includes following criteria: a) Patient is unresponsive to all stimuli: yes b) Pupils fixed and non-reactive:yes c) Auscultation of precordium reveals absence of heart tones:yes d) Auscultation of lungs reveals absence of breath sounds:yes e) Absence of blood pressure / all vital signs:yes f) QRS complexes are not present on monitor / EKG strip:yes g) Pacer spikes without capture:yes 4. Comments:Family notified
--- NOTE | 2023-03-16 18:26 | NUR ---
patient extubated [id number]
--- NOTE | 2023-03-16 21:26 | NUR ---
[employer] at bedside to claim remains. belongings with pt. paperwork signed, copied, and placed in chart.
== END 2023-03-16 22:00 | DRG 208 ==
LOC: ER 02:50 → ED HOLD 04:29 → ICU 2S 09:00
PROVIDERS: ADMIT Surgery; ATTEND Surgery
PROC: 5A1935Z Respiratory Ventilation, Less than 24 Consecutive Hours (ICD-10-PCS; principal; 2023-03-16)
PROC: 0BH17EZ Insertion of Endotracheal Airway into Trachea, Via Natural or Artificial Opening (ICD-10-PCS; 2023-03-16)
PROC: 06HY33Z Insertion of Infusion Device into Lower Vein, Percutaneous Approach (ICD-10-PCS; 2023-03-16)
DX: J96.00 Acute respiratory failure, unspecified whether with hypoxia or hypercapnia (principal); N17.9 Acute kidney failure, unspecified; E87.1 Hypo-osmolality and hyponatremia; I50.32 Chronic diastolic (congestive) heart failure; G93.1 Anoxic brain damage, not elsewhere classified; E87.20 Acidosis, unspecified; Z66 Do not resuscitate; Z20.822 Contact with and (suspected) exposure to COVID-19; I48.91 Unspecified atrial fibrillation; I49.5 Sick sinus syndrome; R47.81 Slurred speech; R53.83 Other fatigue; E03.9 Hypothyroidism, unspecified; E07.81 Sick-euthyroid syndrome; I95.9 Hypotension, unspecified; R34 Anuria and oliguria; R68.0 Hypothermia, not associated with low environmental temperature; R79.89 Other specified abnormal findings of blood chemistry; R94.6 Abnormal results of thyroid function studies; E87.5 Hyperkalemia; I11.0 Hypertensive heart disease with heart failure; E83.41 Hypermagnesemia; I25.10 Atherosclerotic heart disease of native coronary artery without angina pectoris; F03.90 Unspecified dementia, unspecified severity, without behavioral disturbance, psychotic disturbance, mood disturbance, and anxiety; Z82.49 Family history of ischemic heart disease and other diseases of the circulatory system; Z83.3 Family history of diabetes mellitus; Z95.0 Presence of cardiac pacemaker; Z79.899 Other long term (current) drug therapy
CPT/HCPCS: 36415; 36600; 70450; 71045; 71250; 74176; 80053; 81001; 82803; 82948; 83605; 83690; 83735; 83880; 84145; 84443; 84484; 85008; 85018; 85025; 85610; 87040; 87070; 87088; 87811; 94002; 94640; 94760; 94799; 99285; A4615; A6213; A6449; C1751; G0378; J0171; J0610; J0690; J1265; J1815; J2060; J2274; J2405; J2704; J3010; J3490; J7030; J7040; J7050